=== PATIENT | male | born 1975 | race African-American/Black ===

== ENCOUNTER 2022-01-15 21:01 | Inpatient (IN) | payer MEDICAID ==
[~2022-01-15] VITALS: Ht 185.4 cm; Wt 73.9 kg
--- NOTE | 2022-01-15 21:37 | NUR ---
TO ER BED 1. BIBS C/O R TOE SWELLING/PAIN AND FEVER X 2 WEEKS. TOOK FRIENDS AMOX FOR 10 DAYS. DENIES ANY TRAUMA. ELEVATED TEMP AND HR NOTED AT TRIAGE. CONNECTED TO MONITOR. BABS CID
--- NOTE | 2022-01-15 21:45 | NUR ---
COOLING MEASURES APPLIED. WILL REASSESS TEP
--- NOTE | 2022-01-15 21:50 | NUR ---
WOUND TO PATIENTS RIGHT FOOT CLEAN Addendum: 01/15/22 at 2254 by RIANA WOUND TO PATIENTS RIGHT FOOT CLEANED
[2022-01-15] MEDS ORDERED: PIPERACILLIN /TAZOBACTAM 3.375 G VIAL IV ONE (22:29)
[2022-01-15] MEDS ORDERED: VANCOMYCIN 1 GM VIAL ONE (22:29)
[2022-01-15] MEDS ORDERED: ACETAMINOPHEN ES 500 MG TABLET ONE (22:29)
[2022-01-15] MEDS ORDERED: PIPERACILLIN /TAZOBACTAM 3.375 G in IV D5W 50 ML IV ONE (22:30)
[2022-01-15] MEDS ORDERED: IV NS 0.9% 1,000 ML BAG IV ONE (22:30)
[2022-01-15] MEDS ORDERED: VANCOMYCIN 1 GM in IV D5W 250 ML IV ONE (22:30)
[2022-01-15] MEDS ORDERED: ACETAMINOPHEN ES 500 MG TABLET PO ONE (22:30)
--- NOTE | 2022-01-15 22:45 | NUR ---
LAC #18G S/L; PATENT AND INTACT. BLOOD, COVID ANTIGEN, AND MRSA COLLECTED AND SENT TO LAB
--- NOTE | 2022-01-15 22:47 | NUR ---
BLOOD COLLECTED AND SENT TO LAB
--- NOTE | 2022-01-15 22:57 | NUR ---
SHAHID RADIO REPAIR TEACHER AT PT'S BEDSIDE
--- NOTE | 2022-01-15 22:57 | NUR ---
URINE COLLECTED AND SENT TO LAB
--- NOTE | 2022-01-15 22:59 | NUR ---
MOVE SHEET SUBMITTED
--- NOTE | 2022-01-15 23:05 | NUR ---
RADIOLOGY SCHEDULER AT PT'S BEDSIDE
[2022-01-15 23:12] LABS: BASOPHILS % (AUTO) 0.3 % (0.0-2.0); HEMATOCRIT 35 % (39-51); HEMOGLOBIN 11.5 g/dL (13.5-17.5); LYMPHOCYTES # (AUTO) 0.4 K/uL (0.8-4.8); LYMPHOCYTES % (AUTO) 3.1 % (20.0-44.0); MEAN CORPUSCULAR HGB CONC 33 g/dl (31.0-36.0); MEAN CORPUSCULAR VOLUME 80 fL (80-96); MONOCYTES # (AUTO) 0.9 K/uL (0.1-1.30); MONOCYTES % (AUTO) 6.3 % (2.0-12.0); NEUTROPHILS % (AUTO) 90.3 % (43.0-81.0); PLATELET COUNT (AUTO) 247 K/uL (150-450); RED BLOOD CELL COUNT(AUTO) 4.34 MIL/uL (4.5-6.0); WHITE BLOOD COUNT (AUTO) 14.4 K/uL (4.3-11.0)
[2022-01-15 23:13] LABS: BILIRUBIN,URINE NEGATIVE (NEGATIVE); COLOR,URINE YELLOW (YELLOW); LEUKOCYTE ESTERASE ,URINE NEGATIVE (NEGATIVE); NITRITE, URINE NEGATIVE (NEGATIVE); PROTEIN,URINE 30 mg/dl (NEGATIVE); UGLUCOSE >=1000 mg/dL (NEGATIVE); UROBILINOGEN,URINE 0.2 EU/dL (0.2)
[2022-01-15 23:37] LABS: ALANINE AMINOTRANSFERASE 18 U/L (12-78); ALBUMIN 2.8 g/dL (3.4-5.0); ALKALINE PHOSPHATASE 101 U/L (46-116); ASPARTATE AMINOTRANSFERASE 14 U/L (15-37); BILIRUBIN,DIRECT 0.3 mg/dL (0.0-0.2); BILIRUBIN,TOTAL 1.1 mg/dL (0.2-1.0); CALCIUM, SERUM 9.5 mg/dL (8.5-10.1); CARBON DIOXIDE 25 mmol/L (21-32); CHLORIDE 86 mmol/L (98-107); CREATININE 1.2 mg/dL (0.6-1.3); GLUCOSE 360 mg/dL (74-106); POTASSIUM 4.8 mmol/L (3.5-5.1); SODIUM SERUM 123 mmol/L (136-145); TOTAL PROTEIN, SERUM 9.5 g/dL (6.4-8.2); UREA NITROGEN, BLOOD 9 mg/dL (7-18)
[2022-01-15] MEDS ORDERED: INSULIN REGULAR, HUMAN 100 UNIT/ML 10 ML VIAL ONE (23:51)
[2022-01-15] MEDS ORDERED: CEFOXITIN 1 G VIAL ONE (23:52)
[2022-01-15] MEDS ORDERED: CEFEPIME 1 GM VIAL ONE (23:56)
[2022-01-16] MEDS ORDERED: MAGNESIUM HYDROXIDE 30 ML UDC PO PRN
[2022-01-16] MEDS ORDERED: ACETAMINOPHEN 325 MG TABLET PO PRN
[2022-01-16] MEDS ORDERED: ONDANSETRON HCL/PF 4 MG/2 ML VIAL IVP PRN
[2022-01-16] MEDS ORDERED: Z GUARD REMEDY 4 OZ OINT TP PRN
[2022-01-16] MEDS ORDERED: CEFEPIME 2 GM in IV D5W 100 ML IV ONE ×2
[2022-01-16] MEDS ORDERED: MAG HYDROX/AL HYDROX/SIMETH 30 ML UDC PO PRN
[2022-01-16] MEDS ORDERED: DEXTROSE 50%-WATER 50 ML DISP.SYRIN IV PRN
[2022-01-16] MEDS ORDERED: INSULIN REGULAR, HUMAN 100 UNIT/ML 10 ML VIAL SQ ONE
[2022-01-16] MEDS ORDERED: ENOXAPARIN SODIUM 40 MG/0.4 ML DISP.SYRIN SQ SCH
[2022-01-16] MEDS ORDERED: IV NS 0.9% 1,000 ML IV STA (00:22)
--- NOTE | 2022-01-16 00:23 | NUR ---
MS 323-1
--- NOTE | 2022-01-16 01:00 | NUR ---
REPORT GIVEN TO RASHAUN Perez RN FOR BLAZE.
--- NOTE | 2022-01-16 01:07 | NUR ---
PT TRANSFERRING TO 3W BED 323 VIA ACLS PROTOCOL. ALL BELONGINGS WITH PT. VSS
[2022-01-16 01:30] VITALS: BP 114/68
[2022-01-16] MEDS: ENOXAPARIN SODIUM 40 MG/0.4 ML DISP.SYRIN SQ SCH ×2 (01:34→21:33)
--- NOTE | 2022-01-16 02:26 | NUR ---
MS/TELE/RN RECEIVED PATIENT FROM [facility] VIA [facility] AT ABOUT 0108. MADE PATIENT COMFORTABLE IN BED, PATIENT WAS AWAKE, ALERT, ORIENTED, NO C/O PAIN, NO SIGNS OF DISTRESS NOTED, ADMISSION DONE PER POLICY, WOUND PHOTO TAKEN, PLAN OF CARE DISCUSSED WITH THE PATIENT, VERBALISED UNDERSTANDING AND AGREEMENT TO THE PLAN OF CARE, TAUGHT THE USE OF CALL LIGHT AND PLACED IT AT BEDSIDE WITHIN REACH, FALL PRECAUTIONS PER PROTOCOL IMPLEMENTED HOWEVER REFUSED BED ALARM, DISCUSSED THE RISK AND BENEFIT OF BED ALARM, PATIENT VERBALISED UNDERSTANDING BUT STILL REFUSED. WILL MONITOR.
[2022-01-16] MEDS: IV NS 0.9% 1,000 ML IV PRN (03:43)
[2022-01-16 04:00] VITALS: BP 108/71
--- NOTE | 2022-01-16 04:00 | NUR ---
MS/TELE/RN PATIENT IS SLEEPING, APPEARS COMFORTABLE, NO SIGNS OF DISTRESS NOTED, CALL LIGHT IN REACH, WILL CONTINUE TO MONITOR.
--- NOTE | 2022-01-16 04:01 | NUR ---
MS/TELE/RN F/C NOT INSERTED, PATIENT IS ABLE TO USE THE URINAL. WILL CLARIFY ORDER WITH MD IN AM.
[2022-01-16 06:16] LABS: BASOPHILS # (AUTO) 0.1 K/uL (0.0-0.2); BASOPHILS % (AUTO) 0.4 % (0.0-2.0); EOSINOPHILS % (AUTO) 0.1 % (0.0-6.0); HEMATOCRIT 33 % (39-51); HEMOGLOBIN 11.1 g/dL (13.5-17.5); LYMPHOCYTES % (AUTO) 7.3 % (20.0-44.0); MEAN CORPUSCULAR HGB CONC 33 g/dl (31.0-36.0); MEAN CORPUSCULAR VOLUME 80 fL (80-96); MONOCYTES # (AUTO) 1.2 K/uL (0.1-1.30); NEUTROPHILS # (AUTO) 11.1 K/uL (1.8-8.9); NEUTROPHILS % (AUTO) 83.2 % (43.0-81.0); PLATELET COUNT (AUTO) 241 K/uL (150-450); RED BLOOD CELL COUNT(AUTO) 4.18 MIL/uL (4.5-6.0); WHITE BLOOD COUNT (AUTO) 13.4 K/uL (4.3-11.0)
[2022-01-16] MEDS: BLOOD SUGAR DIAGNOSTIC 1 EACH STRIP VI SCH ×4 (06:24→21:55)
[2022-01-16] MEDS: INSULIN REGULAR, HUMAN 100 UNIT/ML 3 ML VIAL SQ PRN ×3 (06:27→17:07)
[2022-01-16 06:31] LABS: CALCIUM, SERUM 9.2 mg/dL (8.5-10.1); MAGNESIUM 2.2 mg/dL (1.8-2.4); PHOSPHORUS 4.2 mg/dL (2.5-4.9); POTASSIUM 4.5 mmol/L (3.5-5.1)
--- NOTE | 2022-01-16 06:32 | NUR ---
MS/TELE/RN PATIENT IS AWAKE, APPEAR COMFORTABLE, NO SIGNS OF DISTRESS NOTED, CALL LIGHT IN REACH, ALL NEEDS ATTENDED AT THIS TIME, WILL CONTINUE TO MONITOR.
[2022-01-16 06:47] LABS: BACTERIA,URINE None seen /HPF (None Seen); RBC,URINE 0-2 /HPF (0-2); SQUAMOUS EPITHELIAL CELL,UR None Seen /HPF (None Seen); WBC,URINE NONE SEEN /HPF (0-3)
[2022-01-16 07:59] LABS: THYROID STIMULATING HORMONE 1.759 uIU/mL (0.358-3.74)
--- NOTE | 2022-01-16 08:02 | NUR ---
RN OPENING NOTE PATIENT RECEIVED IN BED, AO X 4. ABLE TO RESPONDS ALL STIMULI. IN NO ACUTE DISTRESS NOTED. RESPIRATORY EVEN AND UNLABORED ON ROOM AIR. SKIN IS WARM TO TOUCH, KEEP CLEAN/DRY. KEPT ELEVATED HOB FOR ENSURE AIRWAY AND ASPIRATION PRECAUTION, ALSO LOWEST POSITION OF THE BED, S/R UP X 3, BED ALARM IS ON AT ALL THE TIMES. ALL SAFETY PRECAUTION APPLIED. CALL LIGHT WITHIN REACH, WILL CONTINUE TO MONITOR.
[2022-01-16] MEDS: VANCOMYCIN 1 GM in IV D5W 250ml IV SCH ×2 (08:16→15:31)
--- NOTE | 2022-01-16 08:17 | NUR ---
WOUND CARE CONSULT: PT PRESENTS WITH BLACK NECROTIC WOUNDS TO BILATERAL GREAT TOES WITH ODOR, PRESENT ON ADMISSION. DR BUCIO CALLED FOR DPM CONSULT. IN AGREEMENT WITH PLAN OF CARE.
[2022-01-16] MEDS ORDERED: PANTOPRAZOLE 40 MG VIAL IV SCH (09:00)
--- NOTE | 2022-01-16 09:45 | NUR ---
OBTAINED SIGN OF CONSENT FOR WOUND DEBRIDEMENT. CALLED RADIOLOGY FOR FOLLOW UP MRI/RIGHT FOOT WOUND WO CONTRAST AND THEY AWARE.
[2022-01-16] MEDS: CEFEPIME 2 GM in IV D5W 100 ML IV SCH ×2 (12:28→23:37)
--- NOTE | 2022-01-16 18:00 | NUR ---
RN CLOSING NOTE PATIENT IN BED, IN NO ACUTE DISTRESS OBSERVED. SKIN IS WARM TO TOUCH KEEP CLEAN/DRY. S/P RIGHT FOOT DEBRIDEMENT AND NO ACTIVE BLEEDING OBSERVED. RESPIRATORY EVEN AND UNLABORED ON ROOM AIR. NO ADVERSE REACTION NOTED FROM ABX. KEPT ELEVATED HOB FOR ENSURE AIRWAY AND ASPIRATION PRECAUTION, AND LOWEST POSITION OF THE BED FOR SAFETY. CALL LIGHT WITHIN REACH, WILL ENDORSE TO PROPERTY ACCOUNTANT.
--- NOTE | 2022-01-16 19:40 | NUR ---
DIRECTOR OF DATABASE MARKETING NOTES ST-108 ON TELE MONITOR,ON BED A/O X4,BREATHING EASY,NO SOB,SKIN WARM TO THE TOUCH,ORAL TEMP OF 103,WITH BLOOD CULTURE X2 PENDING RESULT.S/P WOUND DEBRIDEMENT ON RIGHT FOOT,DRESSING INTACT AND DRY.IVF NS AT 50ML/HR RATE INFUSING WELL ON LEFT AC SALINE LOCK VIA IV PUMP.MONITOR FOR PAIN,CALL LIGHT IN REACH,NEEDS ANTICIPATED.
[2022-01-16 20:01] VITALS: BP 115/68
[2022-01-16 20:06] VITALS: BP 115/68
--- NOTE | 2022-01-16 20:09 | NUR ---
TECHNICAL DOCUMENTATION SPECIALIST NOTES ORAL TEMPERATURE OF 103,TYLENOL 650MG PO GIVEN ORDERED FEVER.ENCOURAGED TO INCREASED ORAL FLUID
[2022-01-16] MEDS: *INSULIN REGULAR(HUMULIN R)HUM 100 UNIT/ML VIAL SQ PRN (21:59)
--- NOTE | 2022-01-16 22:05 | NUR ---
MECHANICAL APPRENTICE NOTES ACCU=CHECK BLOOD SUGAR CHECK 254,COVERED WITH HUMULIN R 6 UNITS PER SLIDING SCALE.SNACKS PROVIDED AT BEDSIDE.
[2022-01-17] VITALS: BP 124/69
[2022-01-17] MEDS ORDERED: CEFEPIME 1 GM in IV D5W 50 ML IV SCH ×2
[2022-01-17] MEDS: VANCOMYCIN 1 GM in IV D5W 250ml IV SCH ×3 (00:12→15:14)
[2022-01-17 04:00] VITALS: BP 116/71
--- NOTE | 2022-01-17 05:30 | NUR ---
LEAK HUNTER NOTES ACCU-CHECK BLOOD SUGAR CHECK 254,COVERED WITH HUMULIN R 9 UNITS PER AC SLIDING SCALE,AWAITING FORE BREAKFAST.
[2022-01-17] MEDS: BLOOD SUGAR DIAGNOSTIC 1 EACH STRIP VI SCH ×4 (05:59→21:39)
[2022-01-17] MEDS: INSULIN REGULAR, HUMAN 100 UNIT/ML 3 ML VIAL SQ PRN ×3 (06:03→17:47)
--- NOTE | 2022-01-17 06:33 | NUR ---
POWDERMAN NOTES COMMENTED 'I FEEL MUCH BETTER",LATEST ORAL TEMP 99.3.DRESSING TO BILATERAL FOOT INTACT AND DRY.IVF INFUSING WELL ON LEFT AC SALINE LOCK VIA IV PUMP.NO COMPLAINTS OF STRONG PAIN VIA RIGHT FOOT,CALL LIGHT IN REACH,NEEDS ATTENDED.
[2022-01-17 06:47] LABS: BASOPHILS # (AUTO) 0.1 K/uL (0.0-0.2); BASOPHILS % (AUTO) 0.7 % (0.0-2.0); EOSINOPHILS % (AUTO) 0.8 % (0.0-6.0); HEMATOCRIT 29 % (39-51); HEMOGLOBIN 9.7 g/dL (13.5-17.5); LYMPHOCYTES % (AUTO) 12.8 % (20.0-44.0); MEAN CORPUSCULAR HGB CONC 34 g/dl (31.0-36.0); MEAN CORPUSCULAR VOLUME 79 fL (80-96); MONOCYTES # (AUTO) 1.1 K/uL (0.1-1.30); MONOCYTES % (AUTO) 13.4 % (2.0-12.0); NEUTROPHILS # (AUTO) 5.9 K/uL (1.8-8.9); NEUTROPHILS % (AUTO) 72.3 % (43.0-81.0); PLATELET COUNT (AUTO) 209 K/uL (150-450); RED BLOOD CELL COUNT(AUTO) 3.65 MIL/uL (4.5-6.0); WHITE BLOOD COUNT (AUTO) 8.1 K/uL (4.3-11.0)
--- NOTE | 2022-01-17 07:00 | NUR ---
MOLD MAINTENANCE TECHNICIAN OPENING NOTES PATIENT LAYING IN BED, A/O X 4, ABLE TO MAKE NEEDS KNOWN. TELE MONITOR READING ST 104. TOLERATING WELL ON ROOM AIR WITH NO SOB OR S/S RESPIRATORY DISTRESS. KERLIX WRAP COVERING R FOOT. NO COMPLAINTS OF PAIN OR DISCOMFORT AT THIS TIME. L AC # 18 CLEAN, INTACT, AND FLUSHING WELL WITH NS @ 50 ML/HR. SAFETY MEASURES IN PLACE: BED IN LOWEST LOCKED POSITION, SIDE RAILS UP X 2, CALL LIGHT WITHIN REACH. WILL CONTINUE TO MONITOR.
[2022-01-17 07:45] LABS: CALCIUM, SERUM 8.7 mg/dL (8.5-10.1); POTASSIUM 3.8 mmol/L (3.5-5.1)
[2022-01-17] MEDS: DAKINS QUARTER STRENGTH (0.125%) 480 ML BOTTLE TOP SCH (08:41)
[2022-01-17] MEDS: PANTOPRAZOLE 40 MG TABLET.DR PO SCH (09:08)
[2022-01-17 10:09] VITALS: BP 115/70
[2022-01-17 11:59] VITALS: BP 118/71
[2022-01-17] MEDS: CEFEPIME 2 GM in IV D5W 100 ML IV SCH ×2 (12:28→23:10)
[2022-01-17 16:30] VITALS: BP 141/85
[2022-01-17 18:07] LABS: C-REACTIVE PROTEIN 29.2 mg/dL (0.0-0.9)
--- NOTE | 2022-01-17 19:00 | NUR ---
SCREW MACHINE REPAIRER CLOSING NOTES PATIENT LAYING IN BED, A/O X 4, ABLE TO MAKE NEEDS KNOWN. TELE MONITOR READING SR 76. TOLERATING WELL ON ROOM AIR WITH NO SOB OR S/S RESPIRATORY DISTRESS. KERLIX WRAP COVERING R FOOT. NO COMPLAINTS OF PAIN OR DISCOMFORT AT THIS TIME. L AC SL # 18 CLEAN, INTACT, AND FLUSHING WELL. ALYSSA PICC CLEAN, INTACT, AND FLUSHING WELL WITH NS @ 50 ML/HR. SAFETY MEASURES IN PLACE: BED IN LOWEST LOCKED POSITION, SIDE RAILS UP X 2, CALL LIGHT WITHIN REACH. ALL NEEDS MET. WILL ENDORSE TO BROKER ASSOCIATE FOR BLAZE.
--- NOTE | 2022-01-17 19:15 | NUR ---
TECHNICAL SUPPORT TECHNICIAN OPENING NOTES: RECEIVED PATIENT IN BED, AWAKE, A/O X4. NO S/S OF DISTRESS NOTED. NO COMPLAIN OF PAIN. CALL LIGHT WITHIN REACH. BED IN LOWEST AND LOCKED POSITION.
[2022-01-17 20:00] VITALS: BP 127/71
[2022-01-17] MEDS: *INSULIN REGULAR(HUMULIN R)HUM 100 UNIT/ML VIAL SQ PRN (21:48)
[2022-01-17] MEDS: ENOXAPARIN SODIUM 40 MG/0.4 ML DISP.SYRIN SQ SCH (21:50)
[2022-01-17] MEDS ORDERED: INSULIN GLARGINE, 100 UNIT/ML CARTRIDGE SQ SCH (22:00)
[2022-01-17] MEDS: IV NS 0.9% 1,000 ML IV PRN (23:14)
[2022-01-18] VITALS: BP 114/74
[2022-01-18] MEDS: VANCOMYCIN 1 GM in IV D5W 250ml IV SCH ×3 (00:06→15:35)
[2022-01-18 04:00] VITALS: BP 120/74
[2022-01-18] MEDS: BLOOD SUGAR DIAGNOSTIC 1 EACH STRIP VI SCH ×4 (06:38→21:48)
[2022-01-18] MEDS: INSULIN REGULAR, HUMAN 100 UNIT/ML 3 ML VIAL SQ PRN ×3 (06:42→18:36)
--- NOTE | 2022-01-18 07:00 | NUR ---
CURBING STONECUTTER OPENING NOTES PATIENT LAYING IN BED, A/O X 4, ABLE TO MAKE NEEDS KNOWN. TELE MONITOR READING SR 74. TOLERATING WELL ON ROOM AIR WITH NO SOB OR S/S RESPIRATORY DISTRESS. KERLIX WRAP COVERING R FOOT. NO COMPLAINTS OF PAIN OR DISCOMFORT AT THIS TIME. L AC SL # 18 CLEAN, INTACT, AND FLUSHING WELL. ALYSSA PICC CLEAN, INTACT, AND FLUSHING WELL WITH NS @ 50 ML/HR. SAFETY MEASURES IN PLACE: BED IN LOWEST LOCKED POSITION, SIDE RAILS UP X 2, CALL LIGHT WITHIN REACH. WILL CONTINUE TO MONITOR.
[2022-01-18 08:00] VITALS: BP 128/77
[2022-01-18 08:19] LABS: CREATININE 0.8 mg/dL (0.6-1.3); POTASSIUM 3.9 mmol/L (3.5-5.1)
[2022-01-18] MEDS: DAKINS QUARTER STRENGTH (0.125%) 480 ML BOTTLE TOP SCH (08:51)
[2022-01-18] MEDS: PANTOPRAZOLE 40 MG TABLET.DR PO SCH (08:51)
[2022-01-18 12:00] VITALS: BP 127/86
[2022-01-18] MEDS: CEFEPIME 2 GM in IV D5W 100 ML IV SCH ×2 (12:24→23:20)
[2022-01-18 16:00] VITALS: BP 119/75
--- NOTE | 2022-01-18 19:00 | NUR ---
FLANGE MACHINE OPERATOR NOTES PATIENT LAYING IN BED, A/O X 4, ABLE TO MAKE NEEDS KNOWN. TELE MONITOR READING SR 96. TOLERATING WELL ON ROOM AIR WITH NO SOB OR S/S RESPIRATORY DISTRESS. KERLIX WRAP COVERING R FOOT. NO COMPLAINTS OF PAIN OR DISCOMFORT AT THIS TIME. L AC SL # 18 CLEAN, INTACT, AND FLUSHING WELL. ALYSSA PICC CLEAN, INTACT, AND FLUSHING WELL WITH NS @ 50 ML/HR. SAFETY MEASURES IN PLACE: BED IN LOWEST LOCKED POSITION, SIDE RAILS UP X 2, CALL LIGHT WITHIN REACH. ALL NEEDS MET. WILL ENDORSE TO COMMUNICATIONS PROFESSIONAL FOR BLAZE.
--- NOTE | 2022-01-18 19:30 | NUR ---
RN OPENING NOTE PATIENT IN BED, AWAKE. A/O X 4 ABLE TO MAKE NEEDS KNOWN. PATIENT IS ON RA, TOLERATING WELL. PATIENT DOES NOT REPORT ANY PAIN AT THIS TIME. PATIENT IS ON TELE MONITORING READING 98 BPM SR. PATIENT HAS A ALYSSA PICC LINE WITH VANCO IV ABX ONGOING. PATENT AND INTACT. SAFETY MEASURES IN PLACE: BED LOCKED AND IN LOWEST POSITION, CALL LIGHT WITHIN REACH, SIDE RAILS UP. WILL MONITOR PATIENT CLOSELY.
[2022-01-18 20:00] VITALS: BP 103/62
[2022-01-18] MEDS: ENOXAPARIN SODIUM 40 MG/0.4 ML DISP.SYRIN SQ SCH (21:41)
[2022-01-18] MEDS: *INSULIN REGULAR(HUMULIN R)HUM 100 UNIT/ML VIAL SQ PRN (21:43)
[2022-01-18] MEDS ORDERED: INSULIN GLARGINE, 100 UNIT/ML CARTRIDGE SQ SCH (22:00)
[2022-01-19] VITALS: BP 135/78
--- NOTE | 2022-01-19 | NUR ---
WOUND CARE RENDERED ON R 1ST TOE/FOOT AND ON THE L FOOT
[2022-01-19] MEDS: VANCOMYCIN 1 GM in IV D5W 250ml IV SCH ×3 (00:14→15:06)
[2022-01-19 04:00] VITALS: BP 133/71
[2022-01-19] MEDS: INSULIN REGULAR, HUMAN 100 UNIT/ML 3 ML VIAL SQ PRN ×3 (06:19→18:07)
[2022-01-19] MEDS: BLOOD SUGAR DIAGNOSTIC 1 EACH STRIP VI SCH ×4 (06:31→21:03)
--- NOTE | 2022-01-19 06:46 | NUR ---
RN CLOSING NOTE PATIENT IN BED, AWAKE. A/O X 4 ABLE TO MAKE NEEDS KNOWN. PATIENT IS ON RA, TOLERATING WELL. PATIENT DOES NOT REPORT ANY PAIN AT THIS TIME. PATIENT IS ON TELE MONITORING READING 84 BPM SR. PATIENT HAS A ALYSSA PICC LINE WITH NS AT 50 ML/HR ONGOING. PATENT AND INTACT. SAFETY MEASURES IN PLACE: BED LOCKED AND IN LOWEST POSITION, CALL LIGHT WITHIN REACH, SIDE RAILS UP. ALL NEEDS MET AND ATTENDED. ALL ORDERS CARRIED OUT. WILL ENDORSE TO DAY SHIFT NURSE FOR BLAZE
[2022-01-19 06:55] LABS: POTASSIUM 3.9 mmol/L (3.5-5.1)
--- NOTE | 2022-01-19 07:00 | NUR ---
CONSULTING PROPERTY MANAGER OPENING NOTES PATIENT IN BED, AWAKE. A/O X 4 ABLE TO MAKE NEEDS KNOWN. PATIENT IS TOLERATING WELL ON ROOM AIR WITH NO SOB OR S/S RESPIRATORY DISTRESS. NO COMPLAINTS OF PAIN OR DISCOMFORT AT THIS TIME. ON TELE MONITORING READING 82 BPM SR. PATIENT HAS AN ALYSSA PICC LINE WITH NS AT 50 ML/HR ONGOING. PATENT AND INTACT. SAFETY MEASURES IN PLACE: BED LOCKED AND IN LOWEST POSITION, CALL LIGHT WITHIN REACH, SIDE RAILS UP. WILL CONTINUE TO MONITOR.
[2022-01-19] MEDS: PANTOPRAZOLE 40 MG TABLET.DR PO SCH (09:18)
[2022-01-19] MEDS: DAKINS QUARTER STRENGTH (0.125%) 480 ML BOTTLE TOP SCH (09:18)
[2022-01-19] MEDS: CEFEPIME 2 GM in IV D5W 100 ML IV SCH ×2 (12:10→23:21)
[2022-01-19] MEDS: METFORMIN 500 MG TABLET PO SCH (16:44)
--- NOTE | 2022-01-19 19:00 | NUR ---
MS RN CLOSING NOTES PATIENT IN BED, AWAKE. A/O X 4, ABLE TO MAKE NEEDS KNOWN. PATIENT IS TOLERATING WELL ON ROOM AIR WITH NO SOB OR S/S RESPIRATORY DISTRESS. NO COMPLAINTS OF PAIN OR DISCOMFORT AT THIS TIME. PATIENT HAS A ALYSSA PICC LINE, CLEAN, INTACT, AND FLUSHING WELL WITH NS AT 50 ML/HR ONGOING. SAFETY MEASURES IN PLACE: BED LOCKED AND IN LOWEST POSITION, CALL LIGHT WITHIN REACH, SIDE RAILS UP. WILL ENDORSE TO CUSTOM SHOE DESIGNER AND MAKER FOR BLAZE.
--- NOTE | 2022-01-19 19:30 | NUR ---
MS RN OPENING NOTES RECEIVED PATIENT LYING IN BED AWAKE. A/O X 4. BREATHING EVEN AND NON-LABORED ON ROOM AIR. NO C/O PAIN OR DISCOMFORT AT THIS TIME. NOT IN APPARENT DISTRESS. HAS RIGHT UPPER ARM PICC LINE WITH A NEW BAG OF NS RUNNING AT 100 ML/HR. NO S/S OF INFILTRATION NOTED. BILATERAL GREAT TOE DRESSING INTACT. SAFETY MEASURES IN PLACE. WILL CONTINUE PLAN OF CARE.
[2022-01-19 21:05] VITALS: BP 126/79
[2022-01-19] MEDS: INSULIN GLARGINE, 100 UNIT/ML CARTRIDGE SQ SCH (21:09)
[2022-01-19] MEDS: *INSULIN REGULAR(HUMULIN R)HUM 100 UNIT/ML VIAL SQ PRN (21:13)
[2022-01-19] MEDS: ENOXAPARIN SODIUM 40 MG/0.4 ML DISP.SYRIN SQ SCH (21:15)
--- NOTE | 2022-01-19 21:27 | NUR ---
MS RN NOTES BS 237, ADMINISTER 4 UNITS REGULAR INSULIN AND SNACKS GIVEN.
[2022-01-20] MEDS: VANCOMYCIN 1 GM in IV D5W 250ml IV SCH ×3 (00:14→16:41)
--- NOTE | 2022-01-20 02:30 | NUR ---
MS RN NOTES REPORT GIVEN TO ALLISON FOR BLAZE.
[2022-01-20] MEDS: BLOOD SUGAR DIAGNOSTIC 1 EACH STRIP VI SCH ×4 (05:38→21:50)
[2022-01-20] MEDS: INSULIN REGULAR, HUMAN 100 UNIT/ML 3 ML VIAL SQ PRN ×3 (05:40→17:38)
--- NOTE | 2022-01-20 06:14 | NUR ---
MS RN NOTES ACCU-CHECK BLOOD SUGAR CHECK 171,COVERED WITH HUMULIN R 3 UNITS PER SLIDING SCALE.
--- NOTE | 2022-01-20 06:53 | NUR ---
MS RN NOTES IN ROOM SLEEPING,AROUSABLE TO VERBAL STIMULI,BREATHING REGULAR,NOT IN ANY FORM OF DISTRESS.RIGHT FOOT DRESSING INTACT AND DRY.,CALL LIGHT IN REACH,NEEDS ATTENDED.
[2022-01-20 07:22] LABS: CALCIUM, SERUM 8.9 mg/dL (8.5-10.1); CREATININE 0.8 mg/dL (0.6-1.3); POTASSIUM 3.9 mmol/L (3.5-5.1)
--- NOTE | 2022-01-20 07:32 | NUR ---
RN OPENING NOTE PATIENT IN BED RESTING, SLEEPING, AWAKENS TO VERBAL STIMULI. A/O X 4. NO S/S OF PAIN NOTED AT THIS TIME. ON ROOM AIR, NO DISTRESS OR SHORTNESS OF BREATH NOTED. IV ACCESS ALYSSA PICC LINE, INTACT, PATENT AND FLUSHING WELL. FALL AND SAFETY MEASURES IN PLACE, BED ALARM ON, BED IN LOW AND LOCK POSITION, CALL LIGHT AND TABLE WITHIN EASY REACH, SIDE RAILS UP X2. WILL CONTINUE TO MONITOR.
[2022-01-20] MEDS: METFORMIN 500 MG TABLET PO SCH ×2 (08:08→16:41)
[2022-01-20] MEDS: PANTOPRAZOLE 40 MG TABLET.DR PO SCH (08:08)
[2022-01-20] MEDS: DAKINS QUARTER STRENGTH (0.125%) 480 ML BOTTLE TOP SCH (08:09)
[2022-01-20 08:14] VITALS: BP 124/83
--- NOTE | 2022-01-20 09:58 | NUR ---
WOUND CARE CONSULT: PT FOLLOWED BY PODIATRY AND VASCULAR SURGEONS FOR FEET. DEFER TO SURGICAL TEAMS FOR WOUND TREATMENT PLAN.
--- NOTE | 2022-01-20 12:00 | NUR ---
RN NOTE DOCTOR DID DEBRIDEMENT OF LEFT GREAT TOE AT BED SITE. WOUND CARE IMPLEMENTED. WILL CONTINUE TO MONITOR.
[2022-01-20] MEDS: CEFEPIME 2 GM in IV D5W 100 ML IV SCH ×2 (12:10→23:21)
[2022-01-20 16:10] VITALS: BP 114/76
--- NOTE | 2022-01-20 18:28 | NUR ---
RN CLOSING NOTE PATIENT IN BED RESTING, AWAKE. A/O X 4. NO S/S OF PAIN NOTED AT THIS TIME. ON ROOM AIR, NO DISTRESS OR SHORTNESS OF BREATH NOTED. IV ACCESS ALYSSA PICC LINE, INTACT, PATENT AND FLUSHING WELL. WOUND CARE IMPLEMENTED. FALL AND SAFETY MEASURES IN PLACE, BED ALARM ON, BED IN LOW AND LOCK POSITION, CALL LIGHT AND TABLE WITHIN EASY REACH, SIDE RAILS UP X2. WILL ENDORSE TO DIRECTOR OF OPERATIONS FOR THERAPY.
--- NOTE | 2022-01-20 19:15 | NUR ---
MS RN OPENING NOTES: RECEIVED PATIENT IN BED, AWAKE, TALKING TO THE PHONE, NO COMPLAIN OF PAIN. NO S/S OF DISTRESS NOTED. A/O X4. CALL LIGHT WITHIN REACH. BED IN LOWEST AND LOCKED POSITION. URINAL AT THE BEDSIDE.
[2022-01-20 20:00] VITALS: BP 124/75
[2022-01-20] MEDS: *INSULIN REGULAR(HUMULIN R)HUM 100 UNIT/ML VIAL SQ PRN (21:48)
[2022-01-20] MEDS: INSULIN GLARGINE, 100 UNIT/ML CARTRIDGE SQ SCH (21:49)
[2022-01-20] MEDS: ENOXAPARIN SODIUM 40 MG/0.4 ML DISP.SYRIN SQ SCH (21:50)
[2022-01-21] MEDS: VANCOMYCIN 1 GM in IV D5W 250ml IV SCH ×3 (00:03→16:34)
[2022-01-21] MEDS: BLOOD SUGAR DIAGNOSTIC 1 EACH STRIP VI SCH ×4 (06:43→22:24)
[2022-01-21] MEDS: INSULIN REGULAR, HUMAN 100 UNIT/ML 3 ML VIAL SQ PRN ×3 (06:46→17:07)
[2022-01-21 06:54] LABS: CALCIUM, SERUM 9.4 mg/dL (8.5-10.1); CREATININE 0.9 mg/dL (0.6-1.3)
[2022-01-21 08:00] VITALS: BP 116/71
[2022-01-21] MEDS: METFORMIN 500 MG TABLET PO SCH ×2 (08:48→16:34)
[2022-01-21] MEDS: PANTOPRAZOLE 40 MG TABLET.DR PO SCH (08:49)
[2022-01-21] MEDS: DAKINS QUARTER STRENGTH (0.125%) 480 ML BOTTLE TOP SCH (09:04)
[2022-01-21] MEDS: CEFEPIME 2 GM in IV D5W 100 ML IV SCH (12:09)
[2022-01-21] MEDS: ARGININE/GLUTAMINE/CALCIUM BMB 1 EACH POWD.PACK PO SCH ×2 (14:27→16:34)
[2022-01-21 16:00] VITALS: BP 119/76
--- NOTE | 2022-01-21 19:22 | NUR ---
RN OPENING NOTE PATIENT AWAKE IN BED. A/OX4. NO S/S OF DISTRESS, BREATHING WELL ON ROOM AIR. ALYSSA PICC W/ NS 50ML/HR. SAFETY MEASURES IN PLACE: BED AT LOWEST POSITION, LOCKED, RAILS UP X3, CALL FORRESTER WITHIN REACH. WILL CONTINUE TO MONITOR PATIENT.
--- NOTE | 2022-01-21 19:22 | NUR ---
RN CLOSING NOTE PATIENT IN BED RESTING, AWAKE. A/O X 4. NO S/S OF PAIN NOTED AT THIS TIME. ON ROOM AIR, NO DISTRESS OR SHORTNESS OF BREATH NOTED. IV ACCESS ALYSSA PICC LINE, INTACT, PATENT AND FLUSHING WELL. FALL AND SAFETY MEASURES IN PLACE, BED ALARM ON, BED IN LOW AND LOCK POSITION, CALL LIGHT AND TABLE WITHIN EASY REACH, SIDE RAILS UP X2. WILL ENDORSE TO FILER FINISH.
[2022-01-21 20:00] VITALS: BP 140/78
[2022-01-21] MEDS: ENOXAPARIN SODIUM 40 MG/0.4 ML DISP.SYRIN SQ SCH (21:45)
[2022-01-21] MEDS: INSULIN GLARGINE, 100 UNIT/ML CARTRIDGE SQ SCH (21:47)
[2022-01-21] MEDS: *INSULIN REGULAR(HUMULIN R)HUM 100 UNIT/ML VIAL SQ PRN (21:48)
[2022-01-22] MEDS: CEFEPIME 2 GM in IV D5W 100 ML IV SCH ×3 (00:12→23:43)
[2022-01-22] MEDS: VANCOMYCIN 1 GM in IV D5W 250ml IV SCH ×2 (00:43→08:00)
[2022-01-22] MEDS: IV NS 0.9% 1,000 ML IV PRN (03:49)
[2022-01-22] MEDS: INSULIN REGULAR, HUMAN 100 UNIT/ML 3 ML VIAL SQ PRN ×3 (06:37→16:54)
[2022-01-22] MEDS: BLOOD SUGAR DIAGNOSTIC 1 EACH STRIP VI SCH ×4 (06:38→21:33)
--- NOTE | 2022-01-22 07:24 | NUR ---
RN CLOSING NOTE PATIENT AWAKE IN BED. VERY PLEASANT DEMEANOR. A/OX4. NO S/S OF DISTRESS, BREATHING W/O DIFFICULTY ON ROOM AIR. ALYSSA PICC W/ NS @ 50ML/HR. SAFETY MEASURES IN PLACE: BED AT LOWEST POSITION, LOCKED, RAILS UP X2, CALL FORRESTER WITHIN REACH. REPORT ENDORSED TO AND ACKNOWLEDGED BY DAY SHIFT RNESTELLA.
--- NOTE | 2022-01-22 07:30 | NUR ---
MS RN OPENING NOTES RECEIVED PATIENT IN BED; AWAKE, ALERT AND ORIENTED X4. ABLE TO MAKE NEEDS KNOWN. ON ROOM AIR, WELL TOLERATED. BREATHING IS EVEN AND UNLABORED, NOT IN ANY SIGN OF RESPIRATORY DISTRESS NOTED. IV ACCESS ON ALYSSA PICC LINE INTACT AND PATENT WITH NS INFUSING AT 50ML/HR. SAFETY MEASURES IMPLEMENTED: CALL BUTTON AND TABLE WITHIN EASY REACH, SIDE RAILS UP X2, BED IN LOWEST AND LOCKED POSITION. WILL CONTINUE TO MONITOR AND WITH PLAN OF CARE.
[2022-01-22 08:00] VITALS: BP 122/73
[2022-01-22 08:01] LABS: CALCIUM, SERUM 9.4 mg/dL (8.5-10.1); CREATININE 0.9 mg/dL (0.6-1.3); POTASSIUM 3.9 mmol/L (3.5-5.1)
[2022-01-22] MEDS: METFORMIN 500 MG TABLET PO SCH ×2 (08:15→16:11)
[2022-01-22] MEDS: PANTOPRAZOLE 40 MG TABLET.DR PO SCH (08:15)
[2022-01-22] MEDS: ARGININE/GLUTAMINE/CALCIUM BMB 1 EACH POWD.PACK PO SCH ×2 (08:17→16:13)
[2022-01-22] MEDS: DAKINS QUARTER STRENGTH (0.125%) 480 ML BOTTLE TOP SCH (08:18)
--- NOTE | 2022-01-22 08:46 | NUR ---
RN NOTE VANCO IV NON-ADMIN, VANCO TROUGH IS HIGH AT 23.
[2022-01-22 16:00] VITALS: BP 146/82
[2022-01-22] MEDS: VANCOMYCIN 0.75 GM in IV D5W 250 ML IV SCH (16:09)
[2022-01-22] MEDS ORDERED: ACET325T53 PO (17:29)
[2022-01-22] MEDS ORDERED: Insulin Glargine,Hum SQ (17:29)
[2022-01-22] MEDS ORDERED: METF-440 PO (17:29)
[2022-01-22] MEDS ORDERED: NUTR1PAC14 PO (17:29)
[2022-01-22] MEDS ORDERED: SODI473S8 TOP (17:29)
[2022-01-22] MEDS ORDERED: VANC750F2 IV (17:29)
[2022-01-22] MEDS ORDERED: CEFT2VIA13 IJ ×2 (17:29→17:44)
[2022-01-22] MEDS ORDERED: PANT40TA49 PO (17:29)
[2022-01-22] MEDS ORDERED: INSU100V7 SQ (17:44)
[2022-01-22] MEDS ORDERED: BLOO-1281 MC (17:44)
[2022-01-22] MEDS ORDERED: INSU100C10 SQ (17:44)
[2022-01-22] MEDS ORDERED: DOXY-326 PO (17:44)
[2022-01-22] MEDS ORDERED: Blood Sugar Diagnostic VI (17:44)
--- NOTE | 2022-01-22 19:26 | NUR ---
MS RN CLOSING NOTES PATIENT IN BED; AWAKE, ALERT AND ORIENTED X4. ABLE TO MAKE NEEDS KNOWN. ON ROOM AIR, WELL TOLERATED. BREATHING IS EVEN AND UNLABORED, NOT IN ANY SIGN OF RESPIRATORY DISTRESS NOTED. IV ACCESS ON ALYSSA PICC LINE INTACT AND PATENT WITH NS INFUSING AT 50ML/HR. TURNED AND REPOSITIONED Q2HRS AND NEEDED. ALL NEEDS ATTENDED. SAFETY MEASURES IMPLEMENTED: CALL BUTTON AND TABLE WITHIN EASY REACH, SIDE RAILS UP X2, BED IN LOWEST AND LOCKED POSITION. ENDORSED TO EQUIPMENT ENGINEERING TECHNICIAN NURSE.
--- NOTE | 2022-01-22 19:42 | NUR ---
RN OPENING NOTES RECEIVED PT IN BED, AWAKE. AOx4, ABLE TO MAKE NEEDS KNOWN. ON RA AND TOLERATING WELL. NO SOB NOTED. NO S/SX OF RESPIRATORY DISTRESS NOTED. IV ACCESS IN ALYSSA PICC LINE RUNNING NS @ 50 ML/HR. SAFETY PRECAUTIONS IN PLACE: BED IN LOWEST, LOCKED POSITION, SIDERAILS UPx2, AND BRAKES ON. TABLE AND CALL LIGHT WITHIN REACH. WILL CONTINUE TO MONITOR.
[2022-01-22 20:00] VITALS: BP 138/80
[2022-01-22] MEDS: ENOXAPARIN SODIUM 40 MG/0.4 ML DISP.SYRIN SQ SCH (21:35)
[2022-01-22] MEDS: *INSULIN REGULAR(HUMULIN R)HUM 100 UNIT/ML VIAL SQ PRN (21:35)
[2022-01-22] MEDS: INSULIN GLARGINE, 100 UNIT/ML CARTRIDGE SQ SCH (21:36)
[2022-01-23] MEDS: VANCOMYCIN 0.75 GM in IV D5W 250 ML IV SCH ×2 (00:20→08:08)
[2022-01-23] MEDS: IV NS 0.9% 1,000 ML IV PRN (00:22)
[2022-01-23] MEDS: INSULIN REGULAR, HUMAN 100 UNIT/ML 3 ML VIAL SQ PRN (06:33)
[2022-01-23] MEDS: BLOOD SUGAR DIAGNOSTIC 1 EACH STRIP VI SCH (06:33)
--- NOTE | 2022-01-23 06:52 | NUR ---
RN CLOSING NOTES PT IN BED, AWAKE. AOx4, ABLE TO MAKE NEEDS KNOWN. ON RA AND TOLERATING WELL. NO SOB NOTED. NO S/SX OF RESPIRATORY DISTRESS NOTED. IV ACCESS IN ALYSSA PICC LINE RUNNING NS @ 50 ML/HR. ALL ORDERS CARRIED OUT. ALL NEEDS MET. PT KEPT CLEAN AND DRY. SAFETY PRECAUTIONS IN PLACE: BED IN LOWEST, LOCKED POSITION, SIDERAILS UPx2, AND BRAKES ON. TABLE AND CALL LIGHT WITHIN REACH. WILL ENDORSE TO ONCOMING SHIFT FOR BLAZE.
[2022-01-23 07:04] LABS: CALCIUM, SERUM 9.4 mg/dL (8.5-10.1); CREATININE 0.9 mg/dL (0.6-1.3); POTASSIUM 4.1 mmol/L (3.5-5.1)
[2022-01-23] MEDS: PANTOPRAZOLE 40 MG TABLET.DR PO SCH (08:10)
[2022-01-23] MEDS: METFORMIN 500 MG TABLET PO SCH (08:10)
[2022-01-23 08:28] VITALS: BP 113/69
[2022-01-23] MEDS: DAKINS QUARTER STRENGTH (0.125%) 480 ML BOTTLE TOP SCH (08:47)
[2022-01-23] MEDS: ARGININE/GLUTAMINE/CALCIUM BMB 1 EACH POWD.PACK PO SCH (09:04)
--- NOTE | 2022-01-23 10:30 | NUR ---
MATTRESS FILLING MACHINE TENDER NOTES PT DISCHARGED TO HOME IN STABLE CONDITION. PT A/O X4. ABLE TO MAKE NEEDS KNOWN. ON RA, TOLERATING WELL WITH SPO2 AT 97%. BREATHING EVEN AND UNLABORED. NOT IN ANY SIGN OF RESPIRATORY DISTRESS. V/S TAKEN, STABLE, AND RECORDED. ALL BELONGINGS ACCOUNTED FOR. SKIN ASSESSMENT DONE, PICTURE TAKEN, AND PLACED IN THE CHART. IV ACCESS ON ALYSSA PICCLINE, INTACT AND PATENT. PT WILL REMAIN WITH PICC LINE FOR CONTINUOUS IV ATB AT HOME TO BE GIVEN BY HOME HEALTH NURSE. ALL DISCHARGED INSTRUCTIONS AND HEALTH TEACHINGS EXPLAINED AND PROVIDED TO PT. PT VERBALIZED UNDERSTANDING AND SIGNED DISCHARGED DOCUMENTS. PT LEFT UNIT VIA WHEELCHAIR, PICKED UP BY . PT WAS ACCOMPANIED BY CNA. RODRIGUEZ AND CHARGED NURSE AWARE OF DISCHARGED.
== END 2022-01-23 11:00 | disposition home health service (06) | DRG 720 ==
LOC: ER 21:11 → MED 01-16 00:25 → TELE 01-17 05:43 → MED 01-19 13:51
PROVIDERS: ADMIT Registered Nurse; ATTEND Nurse Practitioner Acute Care
PROC: 0JBQ3ZZ Excision of Right Foot Subcutaneous Tissue and Fascia, Percutaneous Approach (ICD-10-PCS; principal; 2022-01-16)
PROC: 02HV33Z Insertion of Infusion Device into Superior Vena Cava, Percutaneous Approach (ICD-10-PCS; 2022-01-17)
PROC: B548ZZA Ultrasonography of Superior Vena Cava, Guidance (ICD-10-PCS; 2022-01-17)
PROC: 0JBQ0ZZ Excision of Right Foot Subcutaneous Tissue and Fascia, Open Approach (ICD-10-PCS; 2022-01-22)
DX: A40.9 Streptococcal sepsis, unspecified (principal); E11.52 Type 2 diabetes mellitus with diabetic peripheral angiopathy with gangrene; E46 Unspecified protein-calorie malnutrition; A48.0 Gas gangrene; M86.171 Other acute osteomyelitis, right ankle and foot; E11.42 Type 2 diabetes mellitus with diabetic polyneuropathy; D63.8 Anemia in other chronic diseases classified elsewhere; E87.1 Hypo-osmolality and hyponatremia; E11.621 Type 2 diabetes mellitus with foot ulcer; R65.20 Severe sepsis without septic shock; E86.1 Hypovolemia; M84.477A Pathological fracture, right toe(s), initial encounter for fracture; E11.69 Type 2 diabetes mellitus with other specified complication; L97.513 Non-pressure chronic ulcer of other part of right foot with necrosis of muscle; Z91.19 Patient's noncompliance with other medical treatment and regimen; E11.65 Type 2 diabetes mellitus with hyperglycemia; E88.09 Other disorders of plasma-protein metabolism, not elsewhere classified; B95.2 Enterococcus as the cause of diseases classified elsewhere; B96.20 Unspecified Escherichia coli [E. coli] as the cause of diseases classified elsewhere; B95.61 Methicillin susceptible Staphylococcus aureus infection as the cause of diseases classified elsewhere; F10.11 Alcohol abuse, in remission; L03.115 Cellulitis of right lower limb; Z20.822 Contact with and (suspected) exposure to COVID-19
CPT/HCPCS: 36415; 71045-TC; 73630-TC; 73718-TC; 80048-TC; 80061-TC; 80076-TC; 80202-TC; 81001; 82962-TC; 83605-TC; 83735-TC; 84100-TC; 84443-TC; 84484-TC; 85025-TC; 85652-TC; 85730-TC; 86140-TC; 87040-TC; 87070-TC; 87081-TC; 87086-TC; 87186-TC; 93926-TC; 97112-TC; 97116-TC; 97530-TC; A6253; A6403; A6407; C9113; C9803; G0378; J0692; J0694; J1650; J1815; J2543; J3370; J7030; J7060